=== PATIENT | female | born 1935 | race Caucasian/White ===

== ENCOUNTER 2020-03-31 14:39 | Inpatient (IN) | payer MEDICARE, OTHER, SELFPAY ==
[2020-03-31] VITALS (14 sets, daily range): BP systolic 151–185; BP diastolic 62–108; PULSE 70–123; RESP 13–23; TEMP 36.6–37.9; O2SAT 95–100; BMI 21.4; BMI 20.9; BMI 21.0
--- NOTE | 2020-03-31 14:51 | NURSING ---
NO OLD EKGS
[2020-03-31 14:56] LABS: Bedside Glucose 126 mg/dL (70-110)
--- NOTE | 2020-03-31 15:02 | CT_ITS ---
We are attempting to reach an attending provider to discuss findings. An addendum with communication details will be sent when the communication is complete. STUDY: CT BRAIN WITHOUT CONTRAST REASON FOR EXAM: Female, 85 years old. Facial droop, aphasia RADIATION DOSAGE (If Supplied By Facility): CTDIvol = ( 44.99 ) mGy, DLP = ( 728.62 ) mGycm TECHNIQUE: Transaxial CT imaging of the brain was performed without administration of intravenous contrast material. Individualized dose optimization techniques were used for this CT. COMPARISON: No relevant priors. FINDINGS: Brain parenchyma is without focal lesions, mass effect, acute intracranial hemorrhage, extra parenchymal fluid collections, hydrocephalus or herniation. There is bilateral mild deep parietal white matter hypodensity. There is questionable hypodensity in the central lori. The skull is intact. CT/STROKE Brain/Head without Cont IMPRESSION: 1. Pontine hypodensity, possibly acute infarct versus artifact. This can be definitively confirmed with MR. 2. No acute intracranial hemorrhage or territorial infarction. Electronically Signed: Tenzin Espinoza, at 15:48 EST Tel , Service support ,
--- NOTE | 2020-03-31 15:02 | EKG12_ITS ---
Test Reason : CONFUSION Blood Pressure : / mmHG Vent. Rate : 103 BPM Atrial Rate : 394 BPM P-R Int : 000 ms QRS Dur : 078 ms QT Int : 280 ms P-R-T Axes : 000 021 010 degrees QTc Int : 366 ms Atrial fibrillation Abnormal ECG Confirmed by BEKA WALSH, EBONY ([id number]), editor house organ DOM SHERMAN ([id number]) on 04/03/2020 11:07:25 AM Referred By: SANTIAGO Confirmed By:EBONY IRELAND MD
--- NOTE | 2020-03-31 15:02 | RAD_ITS ---
STUDY: X-RAY CHEST REASON FOR EXAM: Female, 85 years old. FACIAL DROOP AND TROUBLE SPEAKING SINCE THIS A.M. -- HX OF DEMENTIA, HTN AND BREAST CANCER TECHNIQUE: Frontal view of the chest COMPARISON: None. FINDINGS: The lungs are clear and expanded. There is no demonstrated pleural abnormality. The heart is moderately enlarged. Normal mediastinum and kavon. Normal visualized pulmonary arteries. Normal visualized aortic arch and descending thoracic aorta. Normal visualized thoracic spine. Normal visualized ribs, clavicles, and shoulders. There is no demonstrated abnormality of the visualized soft tissue structures of the upper abdomen. RAD/Chest 1 View IMPRESSION: Moderate cardiomegaly. No acute findings. Electronically Signed: Tenzin Espinoza, at 15:45 EST Tel , Service support ,
--- NOTE | 2020-03-31 15:03 | CT_ITS ---
We are attempting to reach an attending provider to discuss findings. An addendum with communication details will be sent when the communication is complete. STUDY: CTA HEAD AND NECK WITH CONTRAST REASON FOR EXAM: Female, 85 years old. FACIAL DROOP and amp;amp; TROUBLE SPEAKING STARTED AT 930AM -- NIH OF 3 RADIATION DOSAGE (If Supplied By Facility): CTDIvol = ( 11.05 ) mGy, DLP = ( 381.75 ) mGycm TECHNIQUE: CT angiography was performed with a multi-detector CT scanner. Data acquisition was obtained from the skull base through the vertex following intravenous administration of IV 100mL [id number]-370. MIP images were reconstructed from the axial data set. Post-processing of the angiographic images was performed, with multiplanar reformation and 3D reconstruction. Individualized dose optimization techniques were used for this CT. COMPARISON: No relevant priors. FINDINGS: Normal bilateral petrous carotid arteries. Normal right cavernous carotid artery with a normal supraclinoid bifurcation. Normal left cavernous carotid artery with a normal supraclinoid bifurcation. Normal right A1 segments of the anterior cerebral artery. Normal left A1 segments of the anterior cerebral artery. Normal intact anterior communicating artery (ACOM). Normal bilateral A2 segments of the anterior cerebral arteries. Normal right M1 and M2 segments of the middle cerebral arteries, with a normal M1 bifurcation. Normal left M1 and M2 segments of the middle cerebral arteries, with a normal M1 bifurcation. Posterior communicating arteries are small to moderate bilaterally. Normal bilateral vertebral arteries. Normal basilar artery with a normal basilar bifurcation. The visualized bilateral superior cerebellar (SCA) arteries are normal. Normal bilateral P1, P2 and visualized P3 segments of the posterior cerebral arteries. There is no demonstrated aneurysm of the [place]. There is no demonstrated abnormality of the visualized brain. AORTIC ARCH: Normal visualized aortic arch. Normal origins of the brachiocephalic, left common carotid, and left subclavian arteries. RIGHT CAROTID ARTERIES: Normal right common carotid artery (CCA). Normal right common carotid bulb. Normal origin of the right internal carotid (ICA) artery without a hemodynamically significant stenosis. Normal visualized cervical portion of the right internal carotid artery. Normal origin of the right external carotid artery (ECA). LEFT CAROTID ARTERIES: Normal left common carotid artery (CCA). Normal left common carotid bulb. Normal origin of the left internal carotid (ICA) artery without a hemodynamically significant stenosis. Normal visualized cervical portion of the left internal carotid artery. Normal origin of the left external carotid artery (ECA). VERTEBRAL ARTERIES: Normal bilateral vertebral arteries. CT/STROKE CTA Head AND Neck W/Con IMPRESSION: Patent cranial and cervical arteries. Electronically Signed: Tenzin Espinoza, at 16:08 EST Tel , Service support ,
--- NOTE | 2020-03-31 15:03 | ED.VIS.GEN ---
History of Present Illness Chief Complaint: Neuro S/Sx Narrative: This patient is an 85-year-old female who presents with stroke symptoms. Her last known well was 24 hours ago. About 5 to 6 hours ago she had gone over to her neighbors to try to use the phone because she is having difficulty using her own phone. She called a family member and was noted to have confused speech. Nephew's who is the designated visitor had seen her this morning and thought she had some facial droop. She noted that the patient was speaking wrong words. Patient denies any pain or recent illness. Family denies any recent illness that they are aware of. We attempted to pin down an earlier last known well from both family and the facility and were unable to obtain a last known well sooner than about 24 hours ago. Past Medical History - Allergies and Home Meds Allergies/Adverse Reactions: Allergies No Known Allergies Allergy (Verified 03/31/20 14:54) Primary Care Physician: Clayton Garcia MD [Primary Care Provider] - Past Medical History: - - Dementia, hypertension Smoking Status: Never smoker Review of Systems All systems negative except as indicated General: Denies: Fever Eyes: Denies: Visual changes - bilaterally Cardiovascular: Denies: Chest pain Respiratory: Denies: Dyspnea Gastrointestinal: Denies: Nausea, Vomiting Musculoskeletal: Denies: Myalgias, Arthralgias Skin: Denies: Rash Neurological: Reports: - - Speech difficulty. Denies: Headache Physical Exam Vital Signs/Narrative: Vital Signs Temp Pulse Resp BP Pulse Ox 03/31/20 14:40 98 F 108 H 13 177/97 H 100 Inital Vital Signs reviewed: Yes General: Well nourished, Well developed Head: Normocephalic Eyes: EOMI ENT: Moist mucous membranes Neck: Supple Cardiovascular: Regular rate, Regular rhythm Respiratory: No distress, CTA bilaterally Abdomen: Soft, Nontender Skin: Normal color Neurological: Alert, - - NIHSS = 3, Patient missed questions and has mild aphasia. Psychological: Normal affect Diagnostic/Tx/Re-eval Impressions Brain CT 03/31/20 15:02 IMPRESSION: 1. Pontine hypodensity, possibly acute infarct versus artifact. This can be definitively confirmed with MR. 2. No acute intracranial hemorrhage or territorial infarction. Electronically Signed: Tenzin Espinoza, at 15:48 EST Tel , Service support , ADDENDUM: 03/31/20 1601 IMPRESSION: 1. Pontine hypodensity, possibly acute infarct versus artifact. This can be definitively confirmed with MR. 2. No acute intracranial hemorrhage or territorial infarction. N.B. : The above information has been verbally conveyed by Tenzin Espinoza to Dr. Leydi MD, on 03/31/2020 15:54:25 (ET). Electronically Signed: Tenzin Espinoza, at 15:48 EST Tel , Service support , Chest X-Ray 03/31/20 15:02 IMPRESSION: Moderate cardiomegaly. No acute findings. Electronically Signed: Alyssabrianna Alexis, at 15:45 EST Tel , Service support , 03/31/20 15:02 Chest 1 View [RAD] Stat STROKE Brain/Head without Cont [CT] Stat 03/31/20 15:03 STROKE CTA Head AND Neck W/Con [CT] Stat Laboratory Results 03/31/20 03/31/20 03/31/20 14:30 14:30 14:30 WBC 6.4 RBC 4.21 Hgb 14.0 Hct 42.8 MCV 101.7 H MCH 33.3 H MCHC 32.7 RDW Std Deviation 48.3 H RDW Coeff of Ginger 13.0 Plt Count 181 MPV 9.8 Immature Gran % (Auto) 0.300 Neut % (Auto) 76.7 H Lymph % (Auto) 17.4 L [place] % (Auto) 5.2 Eos % (Auto) 0.2 Baso % (Auto) 0.2 Absolute Neuts (auto) 4.9 Absolute Lymphs (auto) 1.11 Nucleated RBC % 0 PT 12.7 INR 1.0 APTT 26.2 Sodium 141 Potassium 3.5 Chloride 106 Carbon Dioxide 30.0 Anion Gap 5 BUN 16 Creatinine 0.96 Estim Creat Clear Calc 33.89 Est GFR (MDRD) Af Amer 71 Est GFR (MDRD) Non-Af 58 L BUN/Creatinine Ratio 16.6 Glucose 105 Calcium 8.6 Troponin I < 0.015 POC Glucose 03/31/20 14:50 WBC RBC Hgb Hct MCV MCH MCHC RDW Std Deviation RDW Coeff of Ginger Plt Count MPV Immature Gran % (Auto) Neut % (Auto) Lymph % (Auto) [place] % (Auto) Eos % (Auto) Baso % (Auto) Absolute Neuts (auto) Absolute Lymphs (auto) Nucleated RBC % PT INR APTT Sodium Potassium Chloride Carbon Dioxide Anion Gap BUN Creatinine Estim Creat Clear Calc Est GFR (MDRD) Af Amer Est GFR (MDRD) Non-Af BUN/Creatinine Ratio Glucose Calcium Troponin I POC Glucose 126 H - Medical Decision Making Patient's presenting NIH stroke scale is 3 with a last known well of 24 hours ago. She does not meet criteria for TPA or stroke team activation. She does have mild aphasia. However most of what she said can be understood with minimal difficulty. She occasionally however speaks inappropriate words. 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 EKG shows atrial fibrillation/flutter at a rate of 103. No known history of atrial fibrillation. CT of the head shows a possible pontine hypodensity. CT angiograms are pending. Patient was given subcutaneous Lovenox for new onset atrial fibrillation. Her heart rate is high 90s to low 100s. Patient was discussed with the hospitalist and will be admitted for further evaluation and management. ED Disposition - Plan for ED Patient: Disposition: Acute Care [facility] Diagnosis: Stroke, Atrial fibrillation Referrals: Clayton Garcia MD [Primary Care Provider] -
[2020-03-31 15:21] LABS: Absolute Lymphocyte Count 1.11 X10^3/uL (0.83-4.51); Absolute Neutrophil Count 4.9 X10^3/uL (2.0-7.7); Basophil# 0.01 X10^3/uL; Basophil% 0.2 % (0-1); Eosinophil# 0.01 X10^3/uL; Eosinophils% 0.2 % (0-5); Hematocrit 42.8 % (37-47); Lymphocyte # 1.11 X10^3/ul (4.0); Lymphocyte % 17.4 % (19-41); Mean Corp Hgb Conc 32.7 g/dL (32-36); Mean Corpuscular Hgb 33.3 pg (27.0-32.0); Mean Corpuscular Volume 101.7 fL (81-99); Mean Platelet Vol. 9.8 fl (6.2-12.0); Monocyte# 0.33 X10^3/uL; Monocyte% 5.2 % (0-10); NRBC Flagged by Analyzer 0 % (0-5); Neutrophil # 4.91 X10^3/uL (2.7-7.7); Neutrophil % 76.7 % (47-70); Platelet Count 181 K/mm3 (150-450); RBC Distribution Width SD 48.3 fl (35.1-43.9); Red Blood Count 4.21 M/mm3 (4.2-5.4); White Blood Count 6.4 K/mm3 (4.4-11.0)
[2020-03-31 15:25] LABS: Prothrombin Time (Protime)PT. 12.7 SECONDS (11.7-14.9)
[2020-03-31 15:27] LABS: Anion Gap 5 (5-15); BUN 16 mg/dL (7-18); BUN/Creat Ratio 16.6 RATIO (10-20); Calcium,Total 8.6 mg/dL (8.5-10.1); Chloride 106 mmol/L (98-107); Creatinine, Serum 0.96 mg/dL (0.55-1.02); EST Glomerular Filtration Rate 58 mL/min (>60); Est Glom Filt Rate - Afr Amer 71 mL/min (>60); Estimated Creatinine Clearance 33.89 ml/min; Glucose 105 mg/dL (74-106); Partial Thromboplast Time 26.2 Seconds (24.1-36.2); Potassium 3.5 mmol/L (3.5-5.1); Sodium Level 141 mmol/L (136-145)
--- NOTE | 2020-03-31 15:58 | HP.PCM_ITS ---
Problem List (1) Stroke Status: Acute Qualifiers: CVA mechanism: unspecified Qualified Code(s): I63.9 - Cerebral infarction, unspecified (2) Atrial fibrillation Status: Acute Qualifiers: Atrial fibrillation type: paroxysmal Qualified Code(s): I48.0 - Paroxysmal atrial fibrillation (3) Hypertension Status: Chronic Qualifiers: Hypertension type: essential hypertension Qualified Code(s): I10 - Essential (primary) hypertension (4) History of breast cancer Status: Resolved (5) Dementia Status: Chronic Qualifiers: Dementia type: unspecified type Dementia behavioral disturbance: without behavioral disturbance Qualified Code(s): F03.90 - Unspecified dementia without behavioral disturbance History of Present Illness Date of Admission: 03/31/20 Chief Complaint: Aphasia The patient is an 85 y/o F W/ PMHx: Dementia unclear type with unclear behavioral disturbance history, HTN, History of Breast CA in remission who presents to the [facility] ED on 03/31/20 with history of onset approximately 24 hours prior release last known normal of strokelike symptoms with aphasia, noted to have even gone to her neighbors to use her phone secondary to difficulty using her own and questionable transient right facial droop earlier in the day which resolved upon repeat assessment per family prior to transitioning her to the hospital for evaluation with additionally no recent fever, chills, nausea, emesis, abdominal pain, chest pain, cough, dyspnea, alteration of sense of taste/smell. In the ED patient assigned an age stroke scale of 3 secondary to missed questions and mild aphasia. Work-up in the ED included T 98, HR 108-123, BP 177/97, RR 20, 100% on RA, CBC with WBC 6.4, hemoglobin 14, platelet 181 without marked shift, unremarkable coags, BMP not marked appearing, troponin less than 0.015, chest x-ray with moderate cardiomegaly with no acute cardiopulmonary findings otherwise, CT brain with pontine hypodensity possibly secondary to an acute infarct versus artifact, no acute intracranial hemorrhage or territorial infarct, CTA head/neck with patent cranial and cervical arteries, EKG with atrial fibrillation. Past Medical History Past Medical History (Chronic Problems): Chronic Problems Hypertension (Chronic) Dementia (Chronic) Allergies No Known Allergies Allergy (Verified 03/31/20 14:54) Home Medications: Ambulatory Orders Medication Instructions Recorded Aspirin [Aspirin, Baby] 81 mg PO DAILY@0800 03/31/20 Calcium 1 tab PO DAILY 03/31/20 Magnesium 1 tab PO DAILY 03/31/20 Metoprolol Tartrate 25 mg PO DAILY 03/31/20 Surgical History: - - Left breast lumpectomy. Psychiatric History: No pertinent psych hx [employer] WORKER History: No pertinent [employer] WORKER history Lives: Alone Smoking Status: Never smoker Tobacco Use: Non-smoker Alcohol: None Drugs: None - *Family History Maternal History Items: - - Per discussion with family patient with maternal family history of significant mental illness otherwise no heart disease, diabetes, strokes. Paternal History Items: Stroke - Patient with paternal family history of stroke. Review of Systems Constitutional: Reports: Fatigue. Denies: Anorexia, Chills, Fever, Malaise, Weakness, Weight Change HEENT: Reports: - - Transient right-sided facial droop reported per family, resolved.. Denies: Head Aches, Sinus Congestion, Sinus Drainage Cardiovascular: Denies: Chest Pain, Palpitations Respiratory: Denies: Cough, Shortness of breath at rest, Sputum production Gastrointestinal: Denies: Abdominal Pain, Nausea, Vomiting Genitourinary: Denies: Dysuria Musculoskeletal: Reports: Back Pain, Joint Pain. Denies: Joint Tenderness Skin: Denies: Rash, Wounds Neurological: Reports: Change in Speech, Slurred speech, Confusion, - - [place] right facial droop.. Denies: Focal weakness, Numbness, Tingling Psychiatric: Denies: Anxiety, Depression, Homicidal Ideations, Suicidal Ideations Hematologic/ Lymphatic: Reports: Easy Bruising, Easy Bleeding VTE Information - Inpt Only VTE Present on Admission: No VTE Mechan Device Prophylaxis: SCD's VTE Pharm Prophylaxis ordered?: Yes Patient Problems: Active and Suspected Problems Stroke (Acute) Atrial fibrillation (Acute) Subjective: Patient seated upright in the ED bed, very hard of hearing, ongoing aphasia otherwise no acute distress. Objective: Physical Examination: General: awake, alert, oriented to self, some recent events but difficulty given aphasia, remains cooperative but having some difficulty following certain examination request, seated upright in the ED bed, no obvious distress. Skin: normal color, turgor, no icterus, cyanosis. HEENT: AT/NC, EOMI, PERRLA, mildly dry MM, no obvious facial droop currently, no carotid bruits or JVD noted. Lungs: Diminished breath sounds, greater bases, mild crackle bases, no rales, ronchi or wheezing, kyphotic. Heart: Irregular irregular; no gallop, rub audible. Abdomen: soft, NTTP, ND, normal BS, no HSM. Extremities: no cyanosis or clubbing, bilateral lower extremity ankle nonpitting edema present. Neurological: patient awake, alert, oriented as noted; cognitive function decreased from baseline intact with history of underlying mild dementia per family report; pupils equally reactive to light and accomodation; cranial nerves grossly pill normal but difficulty following certain examination request secondary to aphasia, moving all 4 extremities, no focal deficits, strength moderately global decrease secondary to acute presentation, negative Babinski, significant difficulty following exam request for finger-nose and [id number] but appear intact and suspect difficulty falling secondary to aphasia. Psychiatric: affect appears mildly flat, no acute evidence of depressive or anxiety feelings. - Physical Exam Vitals/I&O's: Vital Signs Temp Pulse Resp BP Pulse Ox 98 F 123 H 19 H 176/106 H 98 03/31/20 14:40 03/31/20 15:32 03/31/20 15:32 03/31/20 15:32 03/31/20 15:32 Oxygen Delivery Method Room Air Weight: 117 lb 1.047 oz Body Mass Index (BMI) 21.4 Finger Stick Blood Glucose 126 Laboratory Results 03/31/20 14:30: WBC 6.4, RBC 4.21, Hgb 14.0, Hct 42.8, MCV 101.7 H, MCH 33.3 H, MCHC 32.7, RDW Std Deviation 48.3 H, RDW Coeff of Ginger 13.0, Plt Count 181, MPV 9.8, Immature Gran % (Auto) 0.300, Neut % (Auto) 76.7 H, Lymph % (Auto) 17.4 L, [place] % (Auto) 5.2, Eos % (Auto) 0.2, Baso % (Auto) 0.2, Absolute Neuts (auto) 4.9, Absolute Lymphs (auto) 1.11, Nucleated RBC % 0 03/31/20 14:30: PT 12.7, INR 1.0, APTT 26.2 03/31/20 14:30: Sodium 141, Potassium 3.5, Chloride 106, Carbon Dioxide 30.0, Anion Gap 5, BUN 16, Creatinine 0.96, Estim Creat Clear Calc 33.89, Est GFR (MDRD) Af Amer 71, Est GFR (MDRD) Non-Af 58 L, BUN/Creatinine Ratio 16.6, Glucose 105, Calcium 8.6, Troponin I < 0.015 03/31/20 14:50: POC Glucose 126 H Current Medications Labetalol HCl (Labetalol (Prefilled) 20 Mg/4 Ml) 20 mg IV X1 PRN PRN Reason: Blood Pressure Assessment/Plan All Active Problems Stroke (Acute) Atrial fibrillation (Acute) History of breast cancer (Resolved) The patient is an 85 y/o F W/ PMHx: Dementia unclear type with unclear behavioral disturbance history, HTN, History of Breast CA in remission who presents to the [facility] ED on 03/31/20 with history of onset approximately 24 hours prior release last known normal of strokelike symptoms with aphasia, noted to have even gone to her neighbors to use her phone secondary to difficulty using her own and questionable facial droop earlier in the day. 1. Expressive Aphasia concerning for Acute CVA, CT noted Acute [place]: Will admit to PCU, will obtain MRI Brain, CTA Head and Neck with patent cranial and cervical arteries, will obtain ECHO, PT/OT/Speech/Nutrition evaluation per protocol. Will allow permissive HTN except usage BB as noted for PAF, maintain on asa, add lower dose statin given age w/ AM FLP, fall precautions. Mag, TSH, HgbA1c pending. Consult Neurology once imaging and ECHO obtained. Given patient presentation discussed with patient and family that she would likely benefit from transition following discharge to acute rehab for ongoing therapies. 2. New onset, Paroxsymal atrial fibrillation: EKG in ED w/ atrial fibrillation with rate 100-120, contributing to current presentation #1. Will maintain on telemetry, obtain cardiac enzyme serial set, obtain magnesium level, obtain ECHO, obtain TSH level. CHADs scoring appropriate for anticoagulation start at this time especially given #1 and no large infarct (avoidance in case of conversion) therefore will maintain in intermittent on therapeutic lovenox pending oral AM investigation with casemanagement. Will change to BID BB therapy given need for and closely monitor BPs given concurrent permissive HTN. May consider cardiology consultation. 3. Dementia unclear type with unclear behavioral disturbance history: Complicates presentation, maintain fall precautions, PT and OT assessments as well as case management as noted for discharge planning. Likely will be appropriate for acute rehab at discharge. 4. Hypertension: As noted permissive although utilization of transition to BID beta-jerica given atrial fibrillation as noted #2, as needed labetalol and hydralazine per stroke protocol. 5. History of L breast cancer: Patient is noted with history of breast cancer, s/p L breast lumpectomy, remains in remission, encourage continued outpatient follow-up with her oncologist per previous regimen. 6. DVT Prophylaxis: SCDs, lovenox. 7. CODE status: Patient KIRAN is the of her nephew, Ewa Boone and living will is currently in place. Discussed CODE status at length including difference between FULL code, DNR-CCA and DNR-CC status. Following discussions about the differences in these status, requested DNR-CCA, no intubation status. Reviewed also clinical plan of care with Ewa Boone and family present in the ED. Advanced Care Planning Face to Face Time: 16 minutes. Inpatient E&M: 50937 Init Hosp L3 Procedures: 91959 Advncd Care Plan 30 Min
--- NOTE | 2020-03-31 16:08 | NURSING ---
PCU WHITE STROKE, NEW ATRIAL FIBRILLATION
[2020-03-31] MEDS: Enoxaparin 60 MG/0.6 ML Syringe 50 MG SC (16:23)
--- NOTE | 2020-03-31 17:03 | ECHOD_ITS ---
Reason For Study: TIA/CVA Procedure This was a 2D Doppler, Color Flow transthoracic echocardiogram. The exam was of adequate technical quality. Exam performed portable in patient room. Left Ventricle Normal LV size. Sigmoid septum. Left ventricular systolic function is normal. The estimated ejection fraction is 65 %. There is evidence of diastolic dysfunction. No regional wall motion abnormalities noted. Right Ventricle Normal RV size. Normal systolic function. Atria The left atrium is mildly enlarged. Normal right atrium. No doppler evidence for ASD. Bubble contrast study negative for right to left interatrial shunt. Mitral Valve There is no mitral annular calcification. The mitral papillary muscle appears thickened and/or calcified. Mild mitral valve prolapse, posterior leaflet. Mild (1+) mitral valve insufficiency. Tricuspid Valve Normal tricuspid valve. Mild to moderate (1-2+) eccentric tricuspid valve insufficiency. Right ventricular systolic pressure estimated to be 53 mmHg. Aortic Valve Trisinus/trileaflet aortic valve. Mild focal aortic valve calcification. Pulmonic Valve The pulmonic valve is not well visualized. Great Vessels Normal sized aortic root. Pericardium/Pleural No pericardial effusion. Medication Performed a rapid injection of agitated mix of 9 cc saline and 1cc air to assess for atrial septal defect. MMode/2D Measurements & Calculations LVIDd: 3.9 cm IVSd: 1.0 cm Ao root diam: 2.3 cm LVIDs: 2.0 cm LVPWd: 1.1 cm RVDd: 4.3 cm FS: 48.6 % LAV(MOD-bp): 63.4 ml LVAd ap4: 17.3 cm2 SV(MOD-sp4): 24.4 ml LAV(MOD-bp) Indexed: 42.1 ml/m2 EDV(MOD-sp4): 41.4 ml LAV(MOD-sp2): 57.6 ml EDV(sp4-el): 43.3 ml LAV(MOD-sp4): 60.3 ml LVAs ap4: 9.8 cm2 ESV(MOD-sp4): 17.0 ml ESV(sp4-el): 17.3 ml EF(MOD-sp4): 59.0 % EF(sp4-el): 60.0 % SV(sp4-el): 26.0 ml LA A4 area: 20.9 cm2 LA dimension(2D): 4.3 cm RA A4 area: 16.1 cm2 Doppler Measurements & Calculations MV E max jared: 94.0 cm/sec Lat Peak E' Jared: 6.4 cm/sec Med Peak E' Jared: 5.2 cm/sec MV A max jared: 65.3 cm/sec E/E' lat: 14.7 E/E' med: 18.0 MV E/A: 1.4 Ao V2 max: 170.8 cm/sec LV V1 max: 99.3 cm/sec PA V2 max: 90.3 cm/sec Ao max P.7 mmHg LV V1 max P.9 mmHg Ao V2 mean: 116.7 cm/sec Ao mean P.0 mmHg Ao V2 VTI: 36.5 cm TR max jared: 337.1 cm/sec TR max P.4 mmHg Interpretation Summary Left ventricular systolic function is normal. The estimated ejection fraction is 65 %. Sigmoid septum. The left atrium is mildly enlarged. The mitral papillary muscle appears thickened and/or calcified. Mild mitral valve prolapse, posterior leaflet Mild (1+) mitral valve insufficiency. Mild to moderate (1-2+) eccentric tricuspid valve insufficiency. Mild focal aortic valve calcification. Right ventricular systolic pressure estimated to be 53 mmHg. There is evidence of diastolic dysfunction. Bubble contrast study negative for right to left interatrial shunt. Ordering Physician: Marah Baker Referring Physician: Clayton Garcia Performed By: Sosa Johnson RDCS, RVT
[2020-03-31 17:52] LABS: Thyroid Stim Hormone (TSH) 1.09 uIU/mL (0.358-3.74)
[2020-03-31 17:58] LABS: Hemoglobin A1c 5.7 % (3.8-5.6)
[2020-03-31] MEDS: 0.9% Normal Saline 1,000 ML 100 ML IV (18:20)
--- NOTE | 2020-03-31 18:54 | EKG12_ITS ---
Test Reason : A-FIB Blood Pressure : / mmHG Vent. Rate : 094 BPM Atrial Rate : 094 BPM P-R Int : 120 ms QRS Dur : 080 ms QT Int : 328 ms P-R-T Axes : 098 044 039 degrees QTc Int : 410 ms Normal sinus rhythm Normal ECG When compared with ECG of 31-MAR-2020 15:32, MANUAL COMPARISON REQUIRED, DATA IS UNCONFIRMED Confirmed by MIGUEL AWLSH, HADLEY ([id number]), food editor DOM SHERMAN ([id number]) on 04/11/2020 12:01:42 PM Referred By: DR COLMENARES Confirmed By:LIVIA RIVERA MD
[2020-03-31] MEDS: 0.9% Saline Lock 10 ML Syringe IV ×2 (19:39→20:00)
[2020-03-31] MEDS: Haloperidol Lactate 5 MG/ML Vial 1 MG IV ×2 (19:40→19:54)
[2020-03-31] MEDS: Metoprolol Tartrate 5 MG/5 ML Vial 2.5 MG IV (20:26)
--- NOTE | 2020-03-31 22:20 | PCS.PANDOC ---
PANDEMIC DOCUMENTATION INITIATED: Date: 03/31/2020 Time: 8521
--- NOTE | 2020-03-31 23:00 | PCM.PN.BLA ---
Progress Note Reportedly patient had a temperature of 100.2 Fahrenheit. Nurse reported patient is confused and has received multiple dose of Haldol. Will check Covid PCR. Will check urinalysis with urine culture. Of note patient is unable to urinate straight cath x1. If still patient is unable to urinate consider placement of Elias cath. STROKE Vital Signs/Narrative: Vital Signs Temp Pulse Resp BP Pulse Ox 03/31/20 20:26 73 03/31/20 20:25 98.0 F 73 20 H 184/74 H 96 03/31/20 20:00 96
[2020-03-31 23:09] LABS: Bacteria 0 SEEN /hpf (None Seen); Mucous, Urine 0 SEEN /hpf (<or=2+); White Blood Cells 0 SEEN /hpf (0-5)
[2020-03-31 23:16] LABS: Color, Urine Yellow (Yellow); Glucose, Dipstick Normal (Normal); Ketone-Dipstick 15 mg/dl (Negative); Leukocyte Esterase-Dipstick Negative /ul (Negative); Nitrite-Dipstick Negative (Negative); Occult Blood-Urine 150 /ul (Negative); Protein-Dipstick Negative (Negative); Specific Gravity, Urine 1.015 (1.002-1.030); Urine Bilirubin Dipstick Negative (Negative); Urine Clarity Clear (Clear); Urine Urobilinogen Normal (Normal)
--- NOTE | 2020-03-31 23:18 | NURSING ---
Addendum entered by Chely Camargo 03/31/20 23:24: Dr. Baker to bedside around 1999 to assess pt status, permission to not disturb pt to perform NIH and vitals while confused/combative/restless. 2119 NIHSS late b/c pt was resting at the time, done at 2300. Margarette Camargo RN. Original Note: Unable to score NIHSS completely d/t pt status. Pt is unable to cooperate or comprehend. Speech is incomprehensible and slurred. Pt will not answer any LOC questions or follow commands. Extremity strength WNL x4, unable to assess drift. Margarette Camargo RN.
[2020-03-31 23:22] LABS: Red Blood Cells-Urine 10-25 SEEN /hpf (0-5); Squamous Epithelial Cells - UA 0-5 SEEN /hpf (5-10)
[2020-04-01] VITALS (14 sets, daily range): BP systolic 119–159; BP diastolic 55–92; PULSE 57–89; RESP 16–20; TEMP 36.6–38.3; O2SAT 94–98
[2020-04-01 05:31] LABS: Absolute Lymphocyte Count 0.83 X10^3/uL (0.83-4.51); Absolute Neutrophil Count 3.5 X10^3/uL (2.0-7.7); Basophil# 0.01 X10^3/uL; Basophil% 0.2 % (0-1); Hematocrit 36.7 % (37-47); Hemoglobin 12.1 g/dL (12.0-15.0); Lymphocyte # 0.83 X10^3/ul (4.0); Lymphocyte % 17.5 % (19-41); Mean Corpuscular Hgb 33.1 pg (27.0-32.0); Mean Corpuscular Volume 100.3 fL (81-99); Monocyte# 0.39 X10^3/uL; Monocyte% 8.2 % (0-10); NRBC Flagged by Analyzer 0 % (0-5); Neutrophil # 3.51 X10^3/uL (2.7-7.7); Neutrophil % 73.9 % (47-70); Platelet Count 140 K/mm3 (150-450); RBC Distribution Width CV 12.6 % (11.6-14.6); RBC Distribution Width SD 46.5 fl (35.1-43.9); Red Blood Count 3.66 M/mm3 (4.2-5.4); White Blood Count 4.8 K/mm3 (4.4-11.0)
[2020-04-01] MEDS: Haloperidol Lactate 5 MG/ML Vial IV ×4 (05:50→21:45)
[2020-04-01] MEDS: Acetaminophen 650 MG Suppository RECTAL (05:52)
[2020-04-01 05:55] LABS: ALB/GLOB Ratio 1.2 RATIO (0.9-2.4); AST(SGOT) 11 U/L (15-37); Alanine Aminotransfer ALT/SGPT 19 U/L (13-56); Albumin, Serum 3.3 g/dL (3.2-5.0); Alkaline Phosphatase 61 U/L (45-117); Anion Gap 7 (5-15); BUN 11 mg/dL (7-18); BUN/Creat Ratio 12.8 RATIO (10-20); Calcium,Total 8.1 mg/dL (8.5-10.1); Chloride 106 mmol/L (98-107); Cholesterol 170 mg/dL (200); Creatinine, Serum 0.86 mg/dL (0.55-1.02); EST Glomerular Filtration Rate 67 mL/min (>60); Est Glom Filt Rate - Afr Amer 80 mL/min (>60); Estimated Creatinine Clearance 36.09 ml/min; Globulin 2.7 g/dL (2.2-4.2); Glucose 100 mg/dL (74-106); High Density Lipoprotein 64 mg/dL; Potassium 3.5 mmol/L (3.5-5.1); Sodium Level 139 mmol/L (136-145); Triglycerides 63 mg/dL; Very Low Density Lipoprotein 13 mg/dL (5-40)
[2020-04-01] MEDS: Enoxaparin 60 MG/0.6 ML Syringe 50 MG SC ×2 (05:56→17:07)
[2020-04-01] MEDS: 0.9% Saline Lock 10 ML Syringe IV ×2 (06:35→21:46)
--- NOTE | 2020-04-01 09:52 | CASEMGMT ---
This RN CM to room to complete CM assessment at this time and pt is sleeping without distress. Pt has sitter at bedside at this time. According to RN charting, pt's GCS is 13 and she has a hx of dementia. Pt's niece, Ewa Boone, is listed as contact and it states she is also HPOA. This RN CM to call niece to try and complete assessment at this time. SStaten RN CM
--- NOTE | 2020-04-01 09:57 | CASEMGMT ---
SANDRINE MILLS assessment: Phone interview with patient's only contact listed, Ewa Forte, for initial transition planning/care coordination assessment as pt's GCS is currently 13 and pt has hx dementia. Pt is also sleeping without distress with sitter at bedside at this time. SANDRINE MILLS introduced self and role at [facility], raina voices understanding and consents to assessment at this time. Per raina, pt's PCP recently dx'd her with 'advanced alzheimers'. Per nuhaece, pt has been unable to care for self fully and they were starting to work on getting her further care, possible assisted living. Nijairon states that her and her assist pt with all bills/financials, groceries and transportation. Nijairon also states that pt has not been taking her meds properly at home and they just figured this out. Pt currently resides in [facility] independent living and nijairon states that [facility] SNF does have a bed available for pt at this time, if that is what she needs at discharge. Brad TAYLOR updated on all, voices understanding. Care providers, pharmacy, and demographics verified/updated at this time. Presentation: Facial droop and trouble speaking that started at 0930 this morning. Admitting dx: Acute CVA PCP: Radha Specialists: Nijairon states no current specialists. [facility]erred [facility]acy: [facility] Insurance: [place] A/B, [employer] Prescription Benefit: Per raina, pt does not have prescription coverage but has no concerns paying for meds. Living Will/HPOA: Raina states that they brought a copy of LW/HPOA in and it was placed on chart. Upon review, pt's [id number], Jolynn Boone, is actually listed as HPOA and raina Mijares is the 1st alternate. Per raina, Jolynn lives in [place] and her number was obtained and placed on [employer] chart at this time. Menanuhajairon, is aware that the Jolynn would be the decision maker for pt if she is unable to make decisions for herself. Per raina, she is updating Jolynn on all at this time. LNOK: Jolynn Boone, elrlfi-mu-fas/HPOA; raina Mijares Living Arrangements: Pt currently lives alone in [facility] independent living but has been having difficulty completing ADL's. Transportation: Pt's niece/nephew drive and state no transportation concerns at this time. Niece states that pt hardly ever goes out. DME/HHC: Per niece, pt has no hx of HHC or SNF in the past. Niece states concerns with pt going home at time of discharge. Pt is retired. Pt does not smoke cigarettes or drink ETOH. Niece voices no further questions/concerns/needs at this time. CM to follow for MRI results, PT/OT evals, and any further discharge planning/needs. Pt Goal: Unknown d/t AMS at this time. Plan: TBD, pending MRI results, therapy recommendations. Jorge DELUCA CM
[2020-04-01] MEDS: Famotidine 20 MG Tablet PO (11:19)
[2020-04-01] MEDS: Aspirin 81 MG TAB.CHEW PO (11:19)
[2020-04-01] MEDS: Metoprolol Tartrate 25 MG Tablet PO ×2 (11:19→21:49)
--- NOTE | 2020-04-01 12:54 | PN_ITS ---
Patient Problems: Active and Suspected Problems Stroke (Acute) Atrial fibrillation (Acute) Subjective: Confused and disoriented. Had to be given Haldol to try to get her to cooperate with an MRI however she was still agitated. Vitals/I&O's: Vital Signs Temp Pulse Resp BP Pulse Ox 97.9 F 89 18 121/73 H 94 04/01/20 10:42 04/01/20 11:19 04/01/20 10:42 04/01/20 10:42 04/01/20 10:42 Oxygen Delivery Method Room Air Weight: 114 lb 6.719 oz Body Mass Index (BMI) 20.9 Finger Stick Blood Glucose 126 Intake and Output for Last 24 Hours 03/30/20 03/31/20 04/01/20 23:59 23:59 23:59 Intake Total 91.67 / 91.67 908.33 / 908.33 Output Total 500 / 500 Balance 91.67 / -408.33 408.33 / 408.33 General: Confused, Disoriented HEENT: Atraumatic, PERRLA, EOMI, Normocephalic Oral: Moist Mucosa Neck: Supple, No JVD Lungs: Clear to auscultation, Normal air movement, No rhonchi, No wheeze, No rales Cardiovascular: Normal S1, Normal S2, No murmurs, Irregular Rate Abdomen: Soft, Non Tender, Non-Distended, No Hepato-splenomegaly Extremities: No edema, Capillary Refill Less than 3 Seconds Skin: No rashes, No breakdown Neurological: Neuro grossly intact, Motor Exam 5/5 strength throughout, - - No focal deficits. She has difficulty following commands Psych/Mental Status: Flat Affect Laboratory Results 03/31/20 14:30: WBC 6.4, RBC 4.21, Hgb 14.0, Hct 42.8, MCV 101.7 H, MCH 33.3 H, MCHC 32.7, RDW Std Deviation 48.3 H, RDW Coeff of Ginger 13.0, Plt Count 181, MPV 9.8, Immature Gran % (Auto) 0.300, Neut % (Auto) 76.7 H, Lymph % (Auto) 17.4 L, [place] % (Auto) 5.2, Eos % (Auto) 0.2, Baso % (Auto) 0.2, Absolute Neuts (auto) 4.9, Absolute Lymphs (auto) 1.11, Nucleated RBC % 0 03/31/20 14:30: PT 12.7, INR 1.0, APTT 26.2 03/31/20 14:30: Sodium 141, Potassium 3.5, Chloride 106, Carbon Dioxide 30.0, Anion Gap 5, BUN 16, Creatinine 0.96, Estim Creat Clear Calc 33.89, Est GFR (MDRD) Af Amer 71, Est GFR (MDRD) Non-Af 58 L, BUN/Creatinine Ratio 16.6, Glucose 105, Calcium 8.6, Troponin I < 0.015 03/31/20 14:30: Magnesium 2.0, TSH 1.09 03/31/20 14:30: Hemoglobin A1c 5.7 H 03/31/20 14:50: POC Glucose 126 H 03/31/20 17:48: Troponin I < 0.015 03/31/20 20:22: Troponin I < 0.015 03/31/20 23:02: Urine Color Yellow, Urine Clarity Clear, Urine pH 8.0, Ur Specific [place] 1.015, Urine Protein Negative, Urine Glucose (UA) Normal, Urine Ketones 15 H, Urine Occult Blood 150 H, Urine Nitrite Negative, Urine Bilirubin Negative, Urine Urobilinogen Normal, Ur Leukocyte Esterase Negative, Urine RBC 10-25 SEEN, Urine WBC 0 SEEN, Ur Squamous Epith Cells 0-5 SEEN, Urine Bacteria 0 SEEN, Urine Mucus 0 SEEN 03/31/20 23:55: COVID-19 (NAHUN) Not Detected 04/01/20 05:00: WBC 4.8, RBC 3.66 L, Hgb 12.1, Hct 36.7 L, MCV 100.3 H, MCH 33.1 H, MCHC 33.0, RDW Std Deviation 46.5 H, RDW Coeff of Ginger 12.6, Plt Count 140 L, MPV 10.0, Immature Gran % (Auto) 0.200, Neut % (Auto) 73.9 H, Lymph % (Auto) 17.5 L, [place] % (Auto) 8.2, Eos % (Auto) 0.0, Baso % (Auto) 0.2, Absolute Neuts (auto) 3.5, Absolute Lymphs (auto) 0.83, Nucleated RBC % 0 04/01/20 05:00: Sodium 139, Potassium 3.5, Chloride 106, Carbon Dioxide 26.0, Anion Gap 7, BUN 11, Creatinine 0.86, Estim Creat Clear Calc 36.09, Est GFR (MDRD) Af Amer 80, Est GFR (MDRD) Non-Af 67, BUN/Creatinine Ratio 12.8, Glucose 100, Calcium 8.1 L, Total Bilirubin 0.60, AST 11 L, ALT 19, Alkaline Phosphatase 61, Total Protein 6.0 L, Albumin 3.3, Globulin 2.7, Albumin/Globulin Ratio 1.2, Triglycerides 63, Cholesterol 170, LDL Cholesterol 93, VLDL Cholesterol 13, HDL Cholesterol 64 Current Medications Acetaminophen (Acetaminophen 325 Mg Tablet) 650 mg PO Q6H PRN PRN PRN Reason: Pain Score 1-10/Temp > 100.7 F Acetaminophen (Acetaminophen 650 Mg Suppository) 650 mg RECTAL Q4H PRN PRN PRN Reason: Pain Score 1-10/Temp > 100.7 F Last Admin: 04/01/20 05:52 Dose: 650 mg Documented by: Al Hydroxide/Mg Hydroxide (Mag Hydrox/Al Hydrox/Simeth 30 Ml Udc) 30 ml PO Q6H PRN PRN PRN Reason: Gastric Burning Albuterol Sulfate (Albuterol 2.5 Mg/3 Ml Vial.Neb.) 2.5 mg INHALATION Q2H PRN PRN PRN Reason: Dyspnea, wheezing Aspirin (Aspirin 81 Mg Tab.Chew) 81 mg PO DAILY@0800 [facility] Last Admin: 04/01/20 11:19 Dose: 81 mg Documented by: Atorvastatin Calcium (Atorvastatin Calcium 10 Mg Tablet) 10 mg PO QHS [facility] Last Admin: 03/31/20 20:13 Dose: Not Given Documented by: Enoxaparin Sodium (Enoxaparin 60 Mg/0.6 Ml Syringe) 50 mg SC Q12@0600,1800 [facility] Last Admin: 04/01/20 05:56 Dose: 50 mg Documented by: Famotidine (Famotidine 20 Mg Tablet) 20 mg PO DAILY [facility] Last Admin: 04/01/20 11:19 Dose: 20 mg Documented by: Guaifenesin (Guaifenesin 10 Ml Udc (200mg/10ml)) 20 ml PO Q4H PRN PRN PRN Reason: COUGH Haloperidol Lactate (Haloperidol Lactate 5 Mg/Ml Vial) 0.5 mg IV Q4H PRN PRN PRN Reason: AGITATION Last Admin: 04/01/20 09:25 Dose: 0.5 mg Documented by: Hydralazine HCl (Hydralazine 20 Mg/Ml Vial) 5 mg IV Q30M PRN PRN Reason: to maintain BP goals Labetalol HCl (Labetalol (Prefilled) 20 Mg/4 Ml) 10 - 20 mg IV Q10M PRN PRN PRN Reason: to Maintain BP Goals Magnesium Hydroxide (Magnesium Hydroxide 30 Ml Udc) 30 ml PO DAILY PRN PRN PRN Reason: Constipation Melatonin (Melatonin 3 Mg Tablet) 3 mg PO QHS PRN PRN PRN Reason: INSOMNIA Metoprolol Tartrate (Metoprolol Tartrate 25 Mg Tablet) 25 mg PO BID SHAYY Last Admin: 04/01/20 11:19 Dose: 25 mg Documented by: Nitroglycerin (Nitroglycerin (Inpatient Use) 0.4 Mg Tab.Subl) 0.4 mg SUBLINGUAL Q5M PRN PRN Reason: CARDIAC/CHEST PAIN Ondansetron HCl (Ondansetron 4 Mg/2 Ml Vial) 4 mg IV Q8H PRN PRN PRN Reason: NAUSEA/VOMITING Prochlorperazine Edisylate (Prochlorperazine 10 Mg/2 Ml Vial) 5 mg IV Q4H PRN PRN PRN Reason: Breakthrough Nausea/Vomiting Psyllium Hydrophilic Mucilloid (Psyllium 1 Packet) 1 packet PO DAILY PRN PRN PRN Reason: Constipation Senna/Docusate Sodium (Senna/Docusate Sodium 1 Tablet) 2 tablet PO BID PRN PRN PRN Reason: Constipation Sodium Chloride (0.9% Saline Lock 10 Ml Syringe) 10 - 40 ml IV UD PRN PRN Reason: SALINE FLUSH Last Admin: 04/01/20 06:35 Dose: 10 ml Documented by: Throat Lozenges (Benzocaine/Menthol 1 Lozenge) 1 lozenge MUCOUS MEM Q2H PRN PRN PRN Reason: SORE THROAT STROKE Vital Signs/Narrative: Vital Signs Temp Pulse Resp BP Pulse Ox 04/01/20 11:19 89 04/01/20 10:42 97.9 F 89 18 121/73 H 94 Medical Necessity - Tobacco Use Smoking Status: Never smoker Tobacco Use: Non-smoker Assessment/Plan All Active Problems Stroke (Acute) Atrial fibrillation (Acute) History of breast cancer (Resolved) 1. Acute CVA with aphasia/new onset paroxysmal A. fib/HTN -Unable to obtain MRI secondary to agitation, I discussed with the family that this is unlikely to change course therefore will hold off at the moment -Echo pending -Continue with aspirin and will double her metoprolol. Continue with low-dose statin -I discussed the situation with her power of divorce attorney, her hwrjkb-cv-hoa who lives in [place]. We had a 20-minute discussion on advanced care planning and depending on how she is once the Haldol has worn off, she is unable to take p.o., she has been having increasing difficulty with this because of her advanced Alzheimer's, she may benefit from a transition to hospice care at the intermediate. We will plan for a possible hospice evaluation in the morning -TSH is normal 2. Advanced Alzheimer's -This is per the family that they had recently gotten this diagnosis. They had noticed for some time worsening confusion. And it became worse once they moved here from [place] to [place]. -They had noticed some behaviors about writing checks which had gotten worse lately. They have been trying to get her to get this under control -He also noticed that she has needed significant prompting to maintain her p.o. intake. DVT: SCDs/Lovenox Inpatient E&M: 65027 Subs Hosp L2 Procedures: 47430 Advncd Care Plan 30 Min
[2020-04-01] MEDS: Atorvastatin Calcium 10 MG Tablet PO (21:45)
[2020-04-02] VITALS (12 sets, daily range): BP systolic 129–161; BP diastolic 59–79; PULSE 59–74; RESP 16–20; TEMP 36.4–36.9; O2SAT 95–97; BMI 20.9
--- NOTE | 2020-04-02 01:40 | NURSING ---
[facility] done late yesterday d/t pt sleeping per MD communication order to allow pt to rest. Margarette Camargo RN.
[2020-04-02] MEDS: Enoxaparin 60 MG/0.6 ML Syringe 50 MG SC ×2 (05:13→17:22)
--- NOTE | 2020-04-02 08:52 | CASEMGMT ---
Pt is A/O x2 to self, place at this time and is sitting up in bed in no distress eating breakfast at this time. Pt still has sitter at bedside. At this point, pt thinks she is fine to go home but unsure if pt is able to make decision at this time. Advised pt that we will see what therapy recommends and see if they still plan on doing MRI, voices understanding. Jorge DELUCA CM
--- NOTE | 2020-04-02 09:05 | NURSING ---
Sitter removed from room at 0905.
[2020-04-02] MEDS: Famotidine 20 MG Tablet PO (09:37)
[2020-04-02] MEDS: Metoprolol Tartrate 25 MG Tablet PO ×2 (09:37→21:16)
[2020-04-02] MEDS: Aspirin 81 MG TAB.CHEW PO (09:37)
--- NOTE | 2020-04-02 12:45 | PN_ITS ---
Patient Problems: Active and Suspected Problems Stroke (Acute) Atrial fibrillation (Acute) Subjective: Much more alert her aphasia has resolved. She knows that she is in the hospital that she does not know the name of the hospital she thinks is the year 1999. She is very confused and is difficult to have a conversation with her about risks and benefits of treatment plans. I further discussed the situation with her [id number] who is her healthcare power of battery service technician and she discussed the situation with the rest of the family and they have all agreed to at least be evaluated by hospice and then discharged to a prison facility. I discussed with them about the issue of the MRI and that I do not think is can to car changer all that much and they were okay with holding off on obtaining an MRI. Vitals/I&O's: Vital Signs Temp Pulse Resp BP Pulse Ox 97.7 F L 66 18 137/60 H 96 04/02/20 09:30 04/02/20 09:37 04/02/20 09:30 04/02/20 09:30 04/02/20 09:30 Oxygen Delivery Method Room Air Weight: 114 lb 6.719 oz Body Mass Index (BMI) 20.9 Finger Stick Blood Glucose 126 Intake and Output for Last 24 Hours 03/31/20 04/01/20 04/02/20 23:59 23:59 23:59 Intake Total 91.67 / 91.67 1058.33 / 1103.33 105 / 105 Output Total 1250 / 1600 550 / 550 Balance 91.67 / -408.33 -191.67 / -496.67 -445 / -445 General: Alert, oriented x2 confused, HEENT: Atraumatic, PERRLA, EOMI, Normocephalic Oral: Moist Mucosa Neck: Supple, No JVD Lungs: Clear to auscultation, Normal air movement, No rhonchi, No wheeze, No rales Cardiovascular: Normal S1, Normal S2, No murmurs, Irregular Rate Abdomen: Soft, Non Tender, Non-Distended, No Hepato-splenomegaly Extremities: No edema, Capillary Refill Less than 3 Seconds Skin: No rashes, No breakdown Neurological: Neuro grossly intact, Motor Exam 5/5 strength throughout, - - No focal deficits. Psych/Mental Status: Flat Affect Current Medications Acetaminophen (Acetaminophen 325 Mg Tablet) 650 mg PO Q6H PRN PRN PRN Reason: Pain Score 1-10/Temp > 100.7 F Acetaminophen (Acetaminophen 650 Mg Suppository) 650 mg RECTAL Q4H PRN PRN PRN Reason: Pain Score 1-10/Temp > 100.7 F Last Admin: 04/01/20 05:52 Dose: 650 mg Documented by: Al Hydroxide/Mg Hydroxide (Mag Hydrox/Al Hydrox/Simeth 30 Ml Udc) 30 ml PO Q6H PRN PRN PRN Reason: Gastric Burning Albuterol Sulfate (Albuterol 2.5 Mg/3 Ml Vial.Neb.) 2.5 mg INHALATION Q2H PRN PRN PRN Reason: Dyspnea, wheezing Aspirin (Aspirin 81 Mg Tab.Chew) 81 mg PO DAILY@0800 [facility] Last Admin: 04/02/20 09:37 Dose: 81 mg Documented by: Atorvastatin Calcium (Atorvastatin Calcium 10 Mg Tablet) 10 mg PO QHS [facility] Last Admin: 04/01/20 21:45 Dose: 10 mg Documented by: Enoxaparin Sodium (Enoxaparin 60 Mg/0.6 Ml Syringe) 50 mg SC Q12@0600,1800 [facility] Last Admin: 04/02/20 05:13 Dose: 50 mg Documented by: Famotidine (Famotidine 20 Mg Tablet) 20 mg PO DAILY [facility] Last Admin: 04/02/20 09:37 Dose: 20 mg Documented by: Guaifenesin (Guaifenesin 10 Ml Udc (200mg/10ml)) 20 ml PO Q4H PRN PRN PRN Reason: COUGH Haloperidol Lactate (Haloperidol Lactate 5 Mg/Ml Vial) 0.5 mg IV Q4H PRN PRN PRN Reason: AGITATION Last Admin: 04/01/20 21:45 Dose: 0.5 mg Documented by: Hydralazine HCl (Hydralazine 20 Mg/Ml Vial) 5 mg IV Q30M PRN PRN Reason: to maintain BP goals Labetalol HCl (Labetalol (Prefilled) 20 Mg/4 Ml) 10 - 20 mg IV Q10M PRN PRN PRN Reason: to Maintain BP Goals Magnesium Hydroxide (Magnesium Hydroxide 30 Ml Udc) 30 ml PO DAILY PRN PRN PRN Reason: Constipation Melatonin (Melatonin 3 Mg Tablet) 3 mg PO QHS PRN PRN PRN Reason: INSOMNIA Metoprolol Tartrate (Metoprolol Tartrate 25 Mg Tablet) 25 mg PO BID SHAYY Last Admin: 04/02/20 09:37 Dose: 25 mg Documented by: Nitroglycerin (Nitroglycerin (Inpatient Use) 0.4 Mg Tab.Subl) 0.4 mg SUBLINGUAL Q5M PRN PRN Reason: CARDIAC/CHEST PAIN Ondansetron HCl (Ondansetron 4 Mg/2 Ml Vial) 4 mg IV Q8H PRN PRN PRN Reason: NAUSEA/VOMITING Prochlorperazine Edisylate (Prochlorperazine 10 Mg/2 Ml Vial) 5 mg IV Q4H PRN PRN PRN Reason: Breakthrough Nausea/Vomiting Psyllium Hydrophilic Mucilloid (Psyllium 1 Packet) 1 packet PO DAILY PRN PRN PRN Reason: Constipation Senna/Docusate Sodium (Senna/Docusate Sodium 1 Tablet) 2 tablet PO BID PRN PRN PRN Reason: Constipation Sodium Chloride (0.9% Saline Lock 10 Ml Syringe) 10 - 40 ml IV UD PRN PRN Reason: SALINE FLUSH Last Admin: 04/01/20 21:46 Dose: 10 ml Documented by: Throat Lozenges (Benzocaine/Menthol 1 Lozenge) 1 lozenge MUCOUS MEM Q2H PRN PRN PRN Reason: SORE THROAT STROKE Vital Signs/Narrative: Vital Signs Temp Pulse Resp BP Pulse Ox 04/02/20 09:37 66 04/02/20 09:30 97.7 F L 66 18 137/60 H 96 Medical Necessity - Tobacco Use Smoking Status: Never smoker Tobacco Use: Non-smoker Assessment/Plan All Active Problems Stroke (Acute) Atrial fibrillation (Acute) History of breast cancer (Resolved) 1. Acute CVA with aphasia/new onset paroxysmal A. fib/HTN -Unable to obtain MRI secondary to agitation, I discussed with the family that this is unlikely to change course therefore will hold off at the moment -Echo with an EF of 65%, an RVSP of 53 mmHg -CT of the head and neck normal -Continue with aspirin and will double her metoprolol. Continue with low-dose statin -I discussed the situation with her power of battery service technician, her [id number] who lives in [place]. We had a 20-minute discussion on advanced care planning and depending on how she is once the Haldol has worn off, she is unable to take p.o., she has been having increasing difficulty with this because of her advanced Alzheimer's, she may benefit from a transition to hosp[facility] care at the prison. We will proceed with hospice evaluation -TSH is normal 2. Advanced Alzheimer's -This is per the family that they had recently gotten this diagnosis. They had noticed for some time worsening confusion. And it became worse once they moved here from [place] to [place]. -They had noticed some behaviors about writing checks which had gotten worse lately. They have been trying to get her to get this under control -He also noticed that she has needed significant prompting to maintain her p.o. intake. DVT: SCDs/[facility] Inpatient E&M: 31803 Subs Hosp L2
--- NOTE | 2020-04-02 15:42 | CASEMGMT ---
SW was informed patient's family wanted to talk with Hospice. SW was also informed patient's family would like her to go to [facility]. SW faxed referral to [facility] and CLAUDIA also called regarding referral. CLAUDIA will follow up with Hospice in the am. Amy MELCHOR
[2020-04-02] MEDS: Atorvastatin Calcium 10 MG Tablet PO (21:16)
[2020-04-03] VITALS (11 sets, daily range): BP systolic 134–153; BP diastolic 60–96; PULSE 64–102; RESP 16–18; TEMP 36.6–37.2; O2SAT 94–99
[2020-04-03] MEDS: Enoxaparin 60 MG/0.6 ML Syringe 50 MG SC ×2 (06:57→17:03)
[2020-04-03] MEDS: Metoprolol Tartrate 25 MG Tablet PO ×2 (09:30→21:03)
[2020-04-03] MEDS: Famotidine 20 MG Tablet PO (09:30)
[2020-04-03] MEDS: Aspirin 81 MG TAB.CHEW PO (09:30)
--- NOTE | 2020-04-03 09:51 | CASEMGMT ---
CLAUDIA called Ya at [facility] and updated her on patient. CLAUDIA let her know patient still does not have a sitter and has not received any Halodol since the . CLAUDIA told her that CLAUDIA will talk with the doctor, to make sure the plan is to come skilled and then proceed with Hospice at a later date. Amy DOSHI MSW
--- NOTE | 2020-04-03 10:47 | CASEMGMT ---
Patient has a Healthcare POA and LW that family brought in to [facility]. Her Healthcare POA is Jolynn Boone, her sister in law. Amy DOSHI MSW
--- NOTE | 2020-04-03 11:38 | CASEMGMT ---
Physician requested SW make a referral to Hospice and get their opinion on whether or not they feel patient is appropriate for Hospice. SW called Amira at Hospice and explained above. SW also faxed referral. Await their response. Amy DOSHI MSW
--- NOTE | 2020-04-03 12:59 | CASEMGMT ---
Addendum entered by Amy Jimenez 04/03/20 13:38: SW spoke with Ya at [facility] and she asked if patient could come tomorrow. SW confirmed with physician that this is fine. SW notified Ya at [facility], Amira at Hospice, RN at [facility], and patient's POA Jolynn. Plan: d/c to [facility] under intermediate level of care. She will be evaluated by [facility] once she gets to [facility]. Amy MELCHOR Original Note: SW received a call from Amira with Hospice. She said she talked with Jolynn, patient's POA and they do not want patient to go to [facility] ([facility]) skilled. They want her to go to [facility] whether or not she qualifies for Hospice. She has the funds to private pay. She said she will check with the rest of the family, but she is pretty sure they will agree. CLAUDIA gave her SW's phone number to call with the answer. She would like a call when patient is being discharged. CLAUDIA called Ya at [facility] and left her a voice mail requesting a return call. Amy MELCHOR
--- NOTE | 2020-04-03 13:47 | PCM.PN.HOSP ---
Patient Problems: Active and Suspected Problems Stroke (Acute) Atrial fibrillation (Acute) Subjective: Aphasia has resolved, she is eating with one-on-one supervision and she has to be fed she will not eat on her own. Episode at home would like us to send her tomorrow and at that point she will be evaluated by hospice in the skilled nursing Vitals/I&O's: Vital Signs Temp Pulse Resp BP Pulse Ox 97.9 F 74 18 143/70 H 99 04/03/20 09:30 04/03/20 09:30 04/03/20 09:30 04/03/20 09:30 04/03/20 09:30 Oxygen Delivery Method Room Air Weight: 112 lb 5 oz Body Mass Index (BMI) 20.9 Finger Stick Blood Glucose 126 Intake and Output for Last 24 Hours 04/01/20 04/02/20 04/03/20 23:59 23:59 23:59 Intake Total 1058.33 / 1103.33 375 / 375 120 / 120 Output Total 1250 / 1600 600 / 600 475 / 475 Balance -191.67 / -496.67 -225 / -225 -355 / -355 General: Alert, oriented x2 confused, HEENT: Atraumatic, PERRLA, EOMI, Normocephalic Oral: Moist Mucosa Neck: Supple, No JVD Lungs: Clear to auscultation, Normal air movement, No rhonchi, No wheeze, No rales Cardiovascular: Normal S1, Normal S2, No murmurs, Irregular Rate Abdomen: Soft, Non Tender, Non-Distended, No Hepato-splenomegaly Extremities: No edema, Capillary Refill Less than 3 Seconds Skin: No rashes, No breakdown Neurological: Neuro grossly intact, Motor Exam 5/5 strength throughout, - - No focal deficits. Psych/Mental Status: Flat Affect Microbiology Past 72 Hours 03/31/20 23:02 Urine, Catheterized Urine Culture - Final Culture exhibits no growth. Current Medications Acetaminophen (Acetaminophen 325 Mg Tablet) 650 mg PO Q6H PRN PRN PRN Reason: Pain Score 1-10/Temp > 100.7 F Acetaminophen (Acetaminophen 650 Mg Suppository) 650 mg RECTAL Q4H PRN PRN PRN Reason: Pain Score 1-10/Temp > 100.7 F Last Admin: 04/01/20 05:52 Dose: 650 mg Documented by: Al Hydroxide/Mg Hydroxide (Mag Hydrox/Al Hydrox/Simeth 30 Ml Udc) 30 ml PO Q6H PRN PRN PRN Reason: Gastric Burning Albuterol Sulfate (Albuterol 2.5 Mg/3 Ml Vial.Neb.) 2.5 mg INHALATION Q2H PRN PRN PRN Reason: Dyspnea, wheezing Aspirin (Aspirin 81 Mg Tab.Chew) 81 mg PO DAILY@0800 [facility] Last Admin: 04/03/20 09:30 Dose: 81 mg Documented by: Atorvastatin Calcium (Atorvastatin Calcium 10 Mg Tablet) 10 mg PO QHS [facility] Last Admin: 04/02/20 21:16 Dose: 10 mg Documented by: Enoxaparin Sodium (Enoxaparin 60 Mg/0.6 Ml Syringe) 50 mg SC Q12@0600,1800 [facility] Last Admin: 04/03/20 06:57 Dose: 50 mg Documented by: Famotidine (Famotidine 20 Mg Tablet) 20 mg PO DAILY [facility] Last Admin: 04/03/20 09:30 Dose: 20 mg Documented by: Guaifenesin (Guaifenesin 10 Ml Udc (200mg/10ml)) 20 ml PO Q4H PRN PRN PRN Reason: COUGH Haloperidol Lactate (Haloperidol Lactate 5 Mg/Ml Vial) 0.5 mg IV Q4H PRN PRN PRN Reason: AGITATION Last Admin: 04/01/20 21:45 Dose: 0.5 mg Documented by: Hydralazine HCl (Hydralazine 20 Mg/Ml Vial) 5 mg IV Q30M PRN PRN Reason: to maintain BP goals Labetalol HCl (Labetalol (Prefilled) 20 Mg/4 Ml) 10 - 20 mg IV Q10M PRN PRN PRN Reason: to Maintain BP Goals Magnesium Hydroxide (Magnesium Hydroxide 30 Ml Udc) 30 ml PO DAILY PRN PRN PRN Reason: Constipation Melatonin (Melatonin 3 Mg Tablet) 3 mg PO QHS PRN PRN PRN Reason: INSOMNIA Metoprolol Tartrate (Metoprolol Tartrate 25 Mg Tablet) 25 mg PO BID [facility] Last Admin: 04/03/20 09:30 Dose: 25 mg Documented by: Nitroglycerin (Nitroglycerin (Inpatient Use) 0.4 Mg Tab.Subl) 0.4 mg SUBLINGUAL Q5M PRN PRN Reason: CARDIAC/CHEST PAIN Ondansetron HCl (Ondansetron 4 Mg/2 Ml Vial) 4 mg IV Q8H PRN PRN PRN Reason: NAUSEA/VOMITING Prochlorperazine Edisylate (Prochlorperazine 10 Mg/2 Ml Vial) 5 mg IV Q4H PRN PRN PRN Reason: Breakthrough Nausea/Vomiting Psyllium Hydrophilic Mucilloid (Psyllium 1 Packet) 1 packet PO DAILY PRN PRN PRN Reason: Constipation Senna/Docusate Sodium (Senna/Docusate Sodium 1 Tablet) 2 tablet PO BID PRN PRN PRN Reason: Constipation Sodium Chloride (0.9% Saline Lock 10 Ml Syringe) 10 - 40 ml IV UD PRN PRN Reason: SALINE FLUSH Last Admin: 04/01/20 21:46 Dose: 10 ml Documented by: Throat Lozenges (Benzocaine/Menthol 1 Lozenge) 1 lozenge MUCOUS MEM Q2H PRN PRN PRN Reason: SORE THROAT Medical Necessity - Tobacco Use Smoking Status: Never smoker Tobacco Use: Non-smoker Assessment/Plan All Active Problems Stroke (Acute) Atrial fibrillation (Acute) History of breast cancer (Resolved) 1. Acute CVA with aphasia/new onset paroxysmal A. fib/HTN -Unable to obtain MRI secondary to agitation, I discussed with the family that this is unlikely to change course therefore will hold off at the moment -Echo with an EF of 65%, an RVSP of 53 mmHg -CT of the head and neck normal -Continue with aspirin and will double her metoprolol. Continue with low-dose statin -Plan will be to discharge the skilled nursing tomorrow on the skilled side which point she can be evaluated by hospice there and a decision going forward can be made. -TSH is normal 2. Advanced Alzheimer's -This is per the family that they had recently gotten this diagnosis. They had noticed for some time worsening confusion. And it became worse once they moved here from [place] to [place]. -They had noticed some behaviors about writing checks which had gotten worse lately. They have been trying to get her to get this under control -He also noticed that she has needed significant prompting to maintain her p.o. intake. DVT: SCDs/Lovenox Inpatient E&M: 79272 Subs Hosp L2
--- NOTE | 2020-04-03 15:19 | CASEMGMT ---
SW did not complete PHQ 9 with patient as she has Alzheimer's Dementia. She is somewhat alert and oriented, but not enough to complete depression screen. Amy DOSHI BICYCLE II ASSEMBLER
[2020-04-03] MEDS: Atorvastatin Calcium 10 MG Tablet PO (21:02)
[2020-04-04] VITALS (8 sets, daily range): BP systolic 142–171; BP diastolic 62–75; PULSE 55–69; RESP 14–16; TEMP 36.6–36.9; O2SAT 95–97; BMI 20.9
[2020-04-04 05:03] LABS: Absolute Lymphocyte Count 1.07 X10^3/uL (0.83-4.51); Absolute Neutrophil Count 2.6 X10^3/uL (2.0-7.7); Basophil# 0.02 X10^3/uL; Basophil% 0.5 % (0-1); Eosinophil# 0.08 X10^3/uL; Hematocrit 37.7 % (37-47); Hemoglobin 12.9 g/dL (12.0-15.0); Lymphocyte # 1.07 X10^3/ul (4.0); Lymphocyte % 26.4 % (19-41); Mean Corp Hgb Conc 34.2 g/dL (32-36); Mean Corpuscular Hgb 33.9 pg (27.0-32.0); Mean Corpuscular Volume 99.2 fL (81-99); Mean Platelet Vol. 9.9 fl (6.2-12.0); Monocyte# 0.25 X10^3/uL; Monocyte% 6.2 % (0-10); NRBC Flagged by Analyzer 0 % (0-5); Neutrophil # 2.61 X10^3/uL (2.7-7.7); Neutrophil % 64.4 % (47-70); Platelet Count 144 K/mm3 (150-450); RBC Distribution Width CV 12.7 % (11.6-14.6); White Blood Count 4.1 K/mm3 (4.4-11.0)
[2020-04-04 05:15] LABS: Anion Gap 4 (5-15); BUN 10 mg/dL (7-18); BUN/Creat Ratio 11.7 RATIO (10-20); Calcium,Total 8.4 mg/dL (8.5-10.1); Chloride 109 mmol/L (98-107); Creatinine, Serum 0.86 mg/dL (0.55-1.02); EST Glomerular Filtration Rate 67 mL/min (>60); Est Glom Filt Rate - Afr Amer 81 mL/min (>60); Estimated Creatinine Clearance 36.09 ml/min; Glucose 101 mg/dL (74-106); Potassium 3.8 mmol/L (3.5-5.1); Sodium Level 142 mmol/L (136-145)
[2020-04-04] MEDS: Enoxaparin 60 MG/0.6 ML Syringe 50 MG SC (05:22)
--- NOTE | 2020-04-04 09:10 | CASEMGMT ---
Patient will likely be discharged today. CLAUDIA faxed her negative COVID test to [facility]. CLAUDIA also called [facility] and put patient on the will call list. Amy MELCHOR
[2020-04-04] MEDS: Aspirin 81 MG TAB.CHEW PO (10:03)
[2020-04-04] MEDS: Famotidine 20 MG Tablet PO (10:03)
[2020-04-04] MEDS: Metoprolol Tartrate 25 MG Tablet PO (10:03)
--- NOTE | 2020-04-04 10:40 | PCM.TXEXTCAR ---
- Diet 04/01/20 10:43 Diet: Regular - General Food consistency:: Pureed Liquid Consistency:: Regular/Thin Type of Dietary Supplement:: Ensure Pudding L&D Is pt able to select menu?: No Diet Comments: 1:1 staff suprvsd feed; only alert & seated upright - Routine Orders/Code Status Code Status: DNC-A - Therapies Physical Therapy: Eval and Treat Occupational Therapy: Eval and Treat - Allergies/Procedures Done in Hospital Allergies/Adverse Reactions: Allergies No Known Allergies Allergy (Verified 03/31/20 14:54) Procedures: 2-D Echocardiogram - Type of Care/Length of Stay Estimated LOS: Convalescent Care Less Than 30 days Type of Care Needed: Skilled Rehab Potential: Good Prognosis: Good - Additional Orders/Day of Discharge Day of Discharge: 04/04/20 - Dietary and Speech Recommendations Dietitian Recommendations/Changes: Regular diet- consistency per GARMENT FORM ASSEMBLER. Ensure pudding BID. Speech Linguistic Eval Summary: Oriented to name and , able to select age from choice of 2. Not oriented to place despite frequent reorientation. Speech is clear and intelligible, although responses are not appropriate w/ perseverative responses noted t/o session (i.e. I'm at the home. repeated numerous times when attempting to reorient. Follows single step commands intermittently w/ verbal/tactile cues and multiple repetitions. Further assessment recommended pending patient's willingness/ability to meaningfully participate. - Follow Up Care Primary Care Physician: Clayton Garcia MD [Primary Care Provider] - Please follow up with your Primary Care Physician in: 3-5 days Please Follow Up With: Hospice
--- NOTE | 2020-04-04 10:41 | DS.PCM_ITS ---
Discharge Date and Diagnosis - Problem List Patient Problems: Active and Suspected Problems Stroke (Acute) Atrial fibrillation (Acute) Date of Admission: 03/31/20 Date of Discharge: 04/04/20 - Primary Discharge Diagnosis Acute Problems: Active Problems Stroke (Acute) Atrial fibrillation (Acute) - Secondary Discharge Diagnosis Chronic Problems: Chronic Problems Hypertension (Chronic) Dementia (Chronic) Hospital Course and Treatment Imaging Results: Clinical Impression(s) from Imaging Studies Brain CT 03/31/20 15:02 IMPRESSION: 1. Pontine hypodensity, possibly acute infarct versus artifact. This can be definitively confirmed with MR. 2. No acute intracranial hemorrhage or territorial infarction. Electronically Signed: Tenzin Espinoza at 15:48 EST Tel , Service support , ADDENDUM: 03/31/20 1601 IMPRESSION: 1. Pontine hypodensity, possibly acute infarct versus artifact. This can be definitively confirmed with MR. 2. No acute intracranial hemorrhage or territorial infarction. N.B. : The above information has been verbally conveyed by Tenzin Espinoza to Dr. Leydi MD, on 03/31/2020 15:54:25 (ET). Electronically Signed: Tenzin Espinoza at 15:48 EST Tel , Service support , Chest X-Ray 03/31/20 15:02 IMPRESSION: Moderate cardiomegaly. No acute findings. Electronically Signed: Tenzin Espinoza at 15:45 EST Tel , Service support , Head/Neck CTA 03/31/20 15:03 IMPRESSION: Patent cranial and cervical arteries. Electronically Signed: Tenzin Espinoza at 16:08 EST Tel , Service support , ADDENDUM: 03/31/20 1616 IMPRESSION: Patent cranial and cervical arteries. N.B. : The above information has been verbally conveyed by Tenzin Espinoza to Gui López MD, on 03/31/2020 16:09:24 (ET). Electronically Signed: Tenzin Espinoza, at 16:08 EST Tel , Service support , Echo: Interpretation Summary Left ventricular systolic function is normal. The estimated ejection fraction is 65 %. Sigmoid septum. The left atrium is mildly enlarged. The mitral papillary muscle appears thickened and/or calcified. Mild mitral valve prolapse, posterior leaflet Mild (1+) mitral valve insufficiency. Mild to moderate (1-2+) eccentric tricuspid valve insufficiency. Mild focal aortic valve calcification. Right ventricular systolic pressure estimated to be 53 mmHg. There is evidence of diastolic dysfunction. Bubble contrast study negative for right to left interatrial shunt. Operations: None Procedures: 2-D Echocardiogram Summary of Care Provided: Per HPI: The patient is an 85 y/o F W/ PMHx: Dementia unclear type with unclear behavioral disturbance history, HTN, History of Breast CA in remission who presents to the [facility] ED on 03/31/20 with history of onset approximately 24 hours prior release last known normal of strokelike symptoms with aphasia, noted to have even gone to her neighbors to use her phone secondary to difficulty using her own and questionable transient right facial droop earlier in the day which resolved upon repeat assessment per family prior to [facility] with additionally no recent fever, chills, nausea, emesis, abdominal pain, chest pain, cough, dyspnea, alteration of sense of taste/smell. In the ED patient assigned an age stroke scale of 3 secondary to missed questions and mild aphasia. Work-up in the ED included T 98, HR 108-123, BP 177/97, RR 20, 100% on RA, CBC with WBC 6.4, hemoglobin 14, platelet 181 without marked shift, unremarkable coags, BMP not marked appearing, troponin less than 0.015, chest x-ray with moderate cardiomegaly with no acute cardiopulmonary findings otherwise, CT brain with pontine hypodensity possibly secondary to an acute infarct versus artifact, no acute intracranial hemorrhage or territorial infarct, CTA head/neck with patent cranial and cervical arteries, EKG with atrial fibrillation. Hospital Course: 1. Acute CVA with aphasia/new onset paroxysmal A. fib/HTN -Unable to obtain MRI secondary to agitation, I discussed with the family that this is unlikely to change course therefore will hold off at the moment -Echo with an EF of 65%, an RVSP of 53 mmHg -CT of the head and neck normal -Continue with aspirin and will double her metoprolol 25 mg p.o. twice daily. Continue with low-dose statin -We will discharge her to retirement facility today after discussion with the family. At that time hospice will also evaluate her for appropriateness. Unfortunate she was unable to tolerate an MRI and I discussed with the family that it was not likely to add much in the way of therapy especially given her severe dementia. -TSH is normal 2. Advanced Alzheimer's -This is per the family that they had recently gotten this diagnosis. They had noticed for some time worsening confusion. And it became worse once they moved here from [place] to [place]. -They had noticed some behaviors about writing checks which had gotten worse lately. They have been trying to get her to get this under control -He also noticed that she has needed significant prompting to maintain her p.o. intake. Patient Problems: Active and Suspected Problems Stroke (Acute) Atrial fibrillation (Acute) - Physical Exam Vitals/I&O's: Vital Signs Temp Pulse Resp BP Pulse Ox 98.3 F 69 16 142/71 H 95 04/04/20 10:01 04/04/20 10:03 04/04/20 10:01 04/04/20 10:03 04/04/20 10:01 Oxygen Delivery Method Room Air Weight: 114 lb 10.246 oz Body Mass Index (BMI) 20.9 Finger Stick Blood Glucose 126 Intake and Output for Last 24 Hours 04/02/20 04/03/20 04/04/20 23:59 23:59 23:59 Intake Total 375 / 375 360 / 360 0 / 0 Output Total 600 / 600 475 / 475 Balance -225 / -225 -115 / -115 0 / 0 General: Alert, oriented x2 confused, HEENT: Atraumatic, PERRLA, EOMI, Normocephalic Oral: Moist Mucosa Neck: Supple, No JVD Lungs: Clear to auscultation, Normal air movement, No rhonchi, No wheeze, No rales Cardiovascular: Normal S1, Normal S2, No murmurs, Irregular Rate Abdomen: Soft, Non Tender, Non-Distended, No Hepato-splenomegaly Extremities: No edema, Capillary Refill Less than 3 Seconds Skin: No rashes, No breakdown Neurological: Neuro grossly intact, Motor Exam 5/5 strength throughout, - - No focal deficits. Aphasia resolved Psych/Mental Status: Flat Affect Microbiology Past 72 Hours 04/03/20 15:30 Mucosa - Nose SARS-CoV-2 Antigen (Rapid) - Final 03/31/20 23:02 Urine, Catheterized Urine Culture - Final Culture exhibits no growth. Laboratory Results 04/04/20 04:35: WBC 4.1 L, RBC 3.80 L, Hgb 12.9, Hct 37.7, MCV 99.2 H, MCH 33.9 H, MCHC 34.2, RDW Std Deviation 46.0 H, RDW Coeff of Ginger 12.7, Plt Count 144 L, MPV 9.9, Immature Gran % (Auto) 0.500, Neut % (Auto) 64.4, Lymph % (Auto) 26.4, Harris % (Auto) 6.2, Eos % (Auto) 2.0, Baso % (Auto) 0.5, Absolute Neuts (auto) 2.6, Absolute Lymphs (auto) 1.07, Nucleated RBC % 0 04/04/20 04:35: Sodium 142, Potassium 3.8, Chloride 109 H, Carbon Dioxide 29.0, Anion Gap 4 L, BUN 10, Creatinine 0.86, Estim Creat Clear Calc 36.09, Est GFR (MDRD) Af Amer 81, Est GFR (MDRD) Non-Af 67, BUN/Creatinine Ratio 11.7, Glucose 101, Calcium 8.4 L Current Medications Acetaminophen (Acetaminophen 325 Mg Tablet) 650 mg PO Q6H PRN PRN PRN Reason: Pain Score 1-10/Temp > 100.7 F Acetaminophen (Acetaminophen 650 Mg Suppository) 650 mg RECTAL Q4H PRN PRN PRN Reason: Pain Score 1-10/Temp > 100.7 F Last Admin: 04/01/20 05:52 Dose: 650 mg Documented by: Al Hydroxide/Mg Hydroxide (Mag Hydrox/Al Hydrox/Simeth 30 Ml Udc) 30 ml PO Q6H PRN PRN PRN Reason: Gastric Burning Albuterol Sulfate (Albuterol 2.5 Mg/3 Ml Vial.Neb.) 2.5 mg INHALATION Q2H PRN PRN PRN Reason: Dyspnea, wheezing Aspirin (Aspirin 81 Mg Tab.Chew) 81 mg PO DAILY@0800 [facility] Last Admin: 04/04/20 10:03 Dose: 81 mg Documented by: Atorvastatin Calcium (Atorvastatin Calcium 10 Mg Tablet) 10 mg PO QHS [facility] Last Admin: 04/03/20 21:02 Dose: 10 mg Documented by: Enoxaparin Sodium (Enoxaparin 60 Mg/0.6 Ml Syringe) 50 mg SC Q12@0600,1800 [facility] Last Admin: 04/04/20 05:22 Dose: 50 mg Documented by: Famotidine (Famotidine 20 Mg Tablet) 20 mg PO DAILY [facility] Last Admin: 04/04/20 10:03 Dose: 20 mg Documented by: Guaifenesin (Guaifenesin 10 Ml Udc (200mg/10ml)) 20 ml PO Q4H PRN PRN PRN Reason: COUGH Haloperidol Lactate (Haloperidol Lactate 5 Mg/Ml Vial) 0.5 mg IV Q4H PRN PRN PRN Reason: AGITATION Last Admin: 04/01/20 21:45 Dose: 0.5 mg Documented by: Hydralazine HCl (Hydralazine 20 Mg/Ml Vial) 5 mg IV Q30M PRN PRN Reason: to maintain BP goals Labetalol HCl (Labetalol (Prefilled) 20 Mg/4 Ml) 10 - 20 mg IV Q10M PRN PRN PRN Reason: to Maintain BP Goals Magnesium Hydroxide (Magnesium Hydroxide 30 Ml Udc) 30 ml PO DAILY PRN PRN PRN Reason: Constipation Melatonin (Melatonin 3 Mg Tablet) 3 mg PO QHS PRN PRN PRN Reason: INSOMNIA Metoprolol Tartrate (Metoprolol Tartrate 25 Mg Tablet) 25 mg PO BID [facility] Last Admin: 04/04/20 10:03 Dose: 25 mg Documented by: Nitroglycerin (Nitroglycerin (Inpatient Use) 0.4 Mg Tab.Subl) 0.4 mg SUBLINGUAL Q5M PRN PRN Reason: CARDIAC/CHEST PAIN Ondansetron HCl (Ondansetron 4 Mg/2 Ml Vial) 4 mg IV Q8H PRN PRN PRN Reason: NAUSEA/VOMITING Prochlorperazine Edisylate (Prochlorperazine 10 Mg/2 Ml Vial) 5 mg IV Q4H PRN PRN PRN Reason: Breakthrough Nausea/Vomiting Psyllium Hydrophilic Mucilloid (Psyllium 1 Packet) 1 packet PO DAILY PRN PRN PRN Reason: Constipation Senna/Docusate Sodium (Senna/Docusate Sodium 1 Tablet) 2 tablet PO BID PRN PRN PRN Reason: Constipation Sodium Chloride (0.9% Saline Lock 10 Ml Syringe) 10 - 40 ml IV UD PRN PRN Reason: SALINE FLUSH Last Admin: 04/01/20 21:46 Dose: 10 ml Documented by: Throat Lozenges (Benzocaine/Menthol 1 Lozenge) 1 lozenge MUCOUS MEM Q2H PRN PRN PRN Reason: SORE THROAT Home Medications: Medications to take at Discharge Aspirin [Aspirin, Baby] 81 mg PO DAILY@0800 03/31/20 Calcium 1 tab PO DAILY PRN 03/31/20 Magnesium 1 tab PO DAILY PRN 03/31/20 Atorvastatin Calcium [Lipitor] 10 mg PO QHS tab 04/04/20 Metoprolol Tartrate [Lopressor (beta jerica)] 25 mg PO BID tab 04/04/20 Primary Care Physician: Clayton Garcia MD [Primary Care Provider] - Please follow up with your Primary Care Physician in: 3-5 days Please Follow Up With: Hospice Disposition: Custodial facility Minutes spent on discharge:: 35 Patient Condition:: Stable Medical Necessity - Tobacco Use Smoking Status: Never smoker Tobacco Use: Non-smoker Meaningful Use Info Meaningful Use Diagnoses (Choose all that apply): None applicable Inpatient E&M: 08966 Disch Hosp
--- NOTE | 2020-04-04 12:02 | CASEMGMT ---
Addendum entered by Amy Jimenez 04/04/20 12:09: Orders were faxed to [facility]. Amy MELCHOR Original Note: Patient is ready for discharge to [facility]. CLAUDIA [facility] and arranged for patient to get picked up at 1500 via cot. CLAUDIA notified RN, medical unit secretary, patient's POA Jolynn, Amira at Hospice, and Ya at [facility]. Plan: d/c to [facility] under intermediate level of care. [facility] will evaluate patient at [facility]. [facility] patient via [facility]. Amy DOSHI MSW
--- NOTE | 2020-04-04 14:51 | NURSING ---
report called to Alecia Velasquez RN
== END 2020-04-04 15:27 | disposition skilled nursing facility (03) | DRG 65 ==
LOC: ED 16:14 → PCU 16:30
PROVIDERS: Hospitalist; Admitting Provider Family Medicine; Emergency Provider Emergency Medicine; PCP Family Medicine; Visit Provider Family Medicine
DX: I63.9 Cerebral infarction, unspecified (principal); F02.81 Dementia in other diseases classified elsewhere, unspecified severity, with behavioral disturbance; F05 Delirium due to known physiological condition; G30.9 Alzheimer's disease, unspecified; R47.01 Aphasia; R29.703 NIHSS score 3; I11.9 Hypertensive heart disease without heart failure; I48.0 Paroxysmal atrial fibrillation; H91.90 Unspecified hearing loss, unspecified ear; Z66 Do not resuscitate; Z85.3 Personal history of malignant neoplasm of breast; Z79.899 Other long term (current) drug therapy; Z82.3 Family history of stroke
CPT/HCPCS: 36415; 70450; 70496; 70498; 71045; 80048; 80053; 80061; 81001; 82962; 83036; 83735; 84443; 84484; 85025; 85610; 85730; 87086; 87426; 87635; 92507; 92523; 92526; 92610; 93005; 93306; 94762; 97110; 97116; 97162; 97166; 97530; 97535; 99285; J7030; Q9967; A4216; U0002

== ENCOUNTER → 2020-04-09 08:55 | Outpatient (REF) | payer MEDICARE, OTHER, SELFPAY ==
[2020-04-04 02:17] VITALS: BMI 20.9
== END ==
LOC: OLS.ACH 08:55
PROVIDERS: PCP Family Medicine; Referring Provider Family Medicine; Visit Provider Family Medicine
DX: Z03.818 Encounter for observation for suspected exposure to other biological agents ruled out (principal)
CPT/HCPCS: 87635; U0003